=== PATIENT | female | born 1965 | race Caucasian/White ===

== ENCOUNTER 2024-04-29 01:05 | Day surgery (SDC) | payer OTHER, SELFPAY ==
[2024-04-17 15:33] VITALS: BMI 25.8
--- NOTE | 2024-04-17 15:53 | PC.NURSE ---
Report to hospital entrance [address], just right of the Outpatient Waiting Room entrance under the green pavilion located off [facility], at time _1000_ on date _[phone]_. Planned Procedure Time: _1200_.? Time changes happen often and if your time is changed the preop area will call you the afternoon before. - You and your visitor will be asked to self-screen and do not enter if you have any COVID symptoms. Please call surgeon if you need to reschedule. - A mask is optional within the hospital at this time. Patients may have clear liquids (water, carbonated beverages, clear teas, apple juice) until 3 hours prior to surgery with a maximum of 20 ounces. - No food from midnight until time of surgery and no smoking, or chewing tobacco (or any form of nicotine). No chewing gum, candy or mints. Take only the following medications with a SIP of water on the morning of surgery: __Duloxetine, Tiotropium inhaler and if needed may use albutrol inhaler. DO NOT STOP ANY OF YOUR OTHER PRESCRIPTION MEDICATIONS PRIOR TO SURGERY EXCEPT THE FOLLOWING Hold all vitamins and supplements for 3 days per anesthesiologist. Medications to discontinue per physician ___Aspirin OK to continue, Please inquire of Dr Ochoa if OK to continue Ibuprofen prior to surgery.____ Date to take last dose Please no make-up, nail scottish, hairspray, perfume, deodorant, or body powder the day of surgery.? No jewelry (including any body piercings) or valuables the day of surgery, leave them at home.? Please take a shower or bath the night before, or the morning of, surgery with an antibacterial soap.? Wear comfortable, loose fitting clothing.? - Jewelry must be removed prior to entering the operating room.? Rings and piercings that are not removed may be cut off. - The hospital will not accept responsibility for valuables.? - Please leave all valuables, including medications, at home the day of surgery. If you are going home after surgery, a licensed road driver must drive you home.? - NO public transportation without another adult if you receive anesthesia. - We recommend that an adult stay with you for 24 hours following discharge. - We also recommend that you do not drive, make important decision, drink alcoholic beverages, or take any drugs that were not prescribed by your health care provider for at least 24 hours after your discharge time. Follow any additional instructions given to you from your surgeon. Telephone instructions given to __Klaudia Brown.__and asked if any additional questions and then verbalized understanding. Patient advised to call surgeon office or pre surgery nurse liaison [phone] if any additional questions.
--- OUTSIDE RECORDS SUMMARY | 2024-04-29 01:18 | XMS_ITS | Clinical Summary ---
Author Organization [facility] Address [address] [place] [address] Care Team Providers Care Gunner'S Mate Name Role Phone Shay Oates MD, [facility] Primary Care Provider [phone] Benji Zhang MD Unavailable [phone] Allergies Active Allergy Reactions Criticality Noted Date Comments Sulfamethoxazole-Trimethoprim Rash Low 2017 Medications lisinopril 5 MG tablet Take 1 tablet (5 mg total) by mouth daily. 11/16/2017 Active duloxetine 60 MG capsule Take 1 capsule (60 mg total) by mouth daily. 11/16/2017 Active aspirin EC 81 MG EC tablet Take 1 tablet (81 mg total) by mouth daily. 11/16/2017 Active metFORMIN 1000 MG tablet Take 1 tablet (1,000 mg total) by mouth 2 (two) times daily with meals. 11/16/2017 Active glipiZIDE 10 MG tablet Take 2 tablets (20 mg total) by mouth every morning before breakfast. 04/12/2018 Active ibuprofen 600 MG tablet Take 1 tablet (600 mg total) by mouth every 8 (eight) hours as needed for Pain. 04/12/2018 Active atorvastatin 40 MG tablet Take 1 tablet (40 mg total) by mouth nightly at bedtime. 04/12/2018 Active nitroglycerin 0.[address] 1 tablet (0.4 mg total) under the tongue every 5 (five) minutes as needed for Chest Pain. If taking the 3rd dose call 911 04/12/2018 Active Active Problems Problem Noted Date Diagnosed Date Anemia 11/16/2022 Overview (11/16/2022): Added automatically from request for surgery [id number] Hemorrhoids 11/16/2022 Overview (11/16/2022): Added automatically from request for surgery [id number] BARONE (dyspnea on exertion) 12/04/2017 Abnormal EKG 12/04/2017 Hyperlipidemia Essential (primary) hypertension Family History Medical History Relation Comments Breast Cancer Neg Hx Relation Status Comments Brother Alive Mother Alive Social History Tobacco Use Types Packs/Day Years Used Date Smoking Tobacco: Former Cigarettes Q uit: 11/2015 Smokeless Tobacco: Never Alcohol Use Standard Drinks/Week Comments No 0 (1 standard drink = 0.6 oz pur e alcohol) AUDIT-C Answer Date Recorded Frequency of Alcohol Consumption Never 01/17/2018 Average Number of Drinks Not on file 018 Frequency of Binge Drinking Not on file 01/06 Comments No Sex and Gender Information Value Date Recorded Sex Assigned at Not on file Legal Sex Female 11:02 AM CDT Gender Identity Not on file Sexual Orientation Not on file 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 Not on file Not on file Last Filed Vital Signs Vital Sign Reading Time Taken Comments Blood Pressure 102/70 03/07/2023 10:48 AM HVAC RESIDENTIAL SERVICE TECHNICIAN Pulse 65 03/07/2023 10:48 AM HVAC RESIDENTIAL SERVICE TECHNICIAN Temperature 36.6 C (97.8 F) 03/07/2023 8:34 AM HVAC RESIDENTIAL SERVICE TECHNICIAN Respiratory Rate 18 03/07/2023 10:48 AM HVAC RESIDENTIAL SERVICE TECHNICIAN Oxygen Saturation 96% 03/07/2023 10:48 AM HVAC RESIDENTIAL SERVICE TECHNICIAN Inhaled Oxygen Concentration - - Weight 67.1 kg (148 lb) 03/07/2023 8:34 AM HVAC RESIDENTIAL SERVICE TECHNICIAN Height 152.4 cm (5') 03/07/2023 8:34 AM HVAC RESIDENTIAL SERVICE TECHNICIAN Body Mass Index 28.9 03/07/2023 8:34 AM HVAC RESIDENTIAL SERVICE TECHNICIAN Plan of Treatment Upcoming Encounters Date Type Department Care Team (Latest Contact Info) Description 10/25/2024 12:30 PM CDT Hospital Encounter [facility] Surgical Services [address] [place] [id number] Kj Swenson, DO [address] [place] [address] 10/25/2024 12:30 PM CDT - 10/25/2024 1:25 PM CDT Surgery [facility] Services [address] [place] [address] Kj Swenson, [address] [place] [address] Bilateral Carpal Tunnel Release with Procedure As Needed Scheduled Procedures Name Priority Associated Diagnoses Date/Ti me RELEASE CARPAL TUNNEL BILATERAL G56.01, G56.02 10/25/2024 12:30 PM CDT Health Maintenance Due Date Last Done Comments Cervical Cancer Screening Pa p Smear (Age 30 to 64) Every 3 Years 1965 Annual Physical 1968 Hepatitis C 11/27/1983 DTaP, Tdap and Td Vaccines ( 1 - Tdap) 1984 Hepatitis B Vaccines (1 of 3 - 19+ 3-dose series) 1984 Cervical Cancer Screening Pa p with HPV Testing (Age 30 to 64) Every 5 Years 11/27/1995 Cervical Cancer Screening with HPV 11/27/1995 Zoster Vaccines (1 of 2) 11/27/2015 COVID-19 Vaccine (2023-2 5 season) 2023 Influenza Adult (#1) 2023 PHQ-2 (Physician [place]) 02/07/2024 Mammogram Screening 12/28/2024 12/28/2022 Colorectal Cancer Screening Colonoscopy (10 Years) 03/07/2033 03/07/2023 Meningococcal B Vaccine Aged Out No l onger eligible based on patient's age to complete this topic Meningococcal Vaccine Aged Out No hattie dolores eligible based on patient's age to complete this topic Pneumococcal Vaccine: Pediat rics (0 to 5 Years) and At-Risk Patients (6 to 64 Years) Aged Out No longer eligi ble based on patient's age to complete this topic RSV Immunizations Under 20 Months Aged Out No longer eligible based on patient's age to complete this topic Procedures Procedure Name Priority Date/Time Associated Diagnosis Comments MG SCREENING W CALI NATHALIA DIGI Routine 12/28/2022 1:00 PM HVAC RESIDENTIAL SERVICE TECHNICIAN Encounter for screening mammogram for breast cancer from Last 3 Months or Most Recently Relevant to Health Maintenance Results * MG SCREENING W CALI NATHALIA DIGI (12/28/2022 1:00 PM HVAC RESIDENTIAL SERVICE TECHNICIAN) Anatomical Region Laterality Modality Breast Bilateral Computed Tomogra phy, Other 12/28/2022 4:02 PM HVAC RESIDENTIAL SERVICE TECHNICIAN Narrative 12/28/2022 4:03 PM HVAC RESIDENTIAL SERVICE TECHNICIAN EXAMINATION: Digital bilateral screening mammogram with 3-D tomosynthesis EXAM DATE/TIME: 12/28/2022 12:40 PM REASON FOR EXAM: Encounter for screening mammogram for breast cancer COMPARISON: Right including May 2018, November 2017, April 2017. TECHNIQUE: Digital screening mammography of both breasts was performed in addition to 3-D Tomosynthesis technique. This study was read with the assistance of a computer-aided detection system. TISSUE DENSITY: There are scattered areas of fibroglandular density. FINDINGS: On the right there is no suspicious masses, malignant appearing calcifications, skin thickening or other abnormalities are present. No significant change from the prior exam. Within the medial inferior left breast is a small asymmetry that is present. This could be due to overlapping tissue. Compression view and possible ultrasound. =====IMPRESSION:===== Asymmetry left breast. Compression view and possible ultrasound. ASSESSMENT: ACR BI-RADS 0 - INCOMPLETE: NEEDS ADDITIONAL IMAGING EVALUATION Recommendation: 1: Additional Imaging Left COMMENTS: Ordered By: EDWIN DAY V Interpreted By: Josiah Aguilar MD, 12/28/2022 4:02 PM Edwin Oates MD MAMMO Final Result from Last 3 Months or Most Recently Relevant to Health Maintenance Insurance [employer] Care Teams Gunner'S Mate Relationship Specialty Start Date End Date Edwin Day MD [facility] [address] [place] [address] PCP - General INTERNAL MEDICINE 10/03/17 Benji Zhang MD [facility] [address] [place] [address] Fredis Client Success Manager CARDIOVASCULAR DISEASE 11/07/17
--- OUTSIDE RECORDS SUMMARY | 2024-04-29 01:19 | XMS_ITS | Encounter Summary ---
Author Organization [facility] Address [address] [place] [address] Care Team Providers Care Job Placement Officer Name Role Phone Unavailable Primary Care Provider Unavailabl e Reason for Visit * Reason Onset Date Comments General 05/01/2019 Encounter Details Date Type Department Care Team (Late st Contact Info) Description 05/01/2019 Telephone [facility] - Orthopedics [address] [place] [id number] Deangelo Cervantes MD [facility] [address] [address] General Social History Tobacco Use Types Packs/Day Years Used Date Smoking Tobacco: Former Smokeless Tobacco: Former Alcohol Use Standard Drinks/Week Comments Never 0 (1 standard drink = 0.6 oz pur e alcohol) AUDIT-C Answer Date Recorded Frequency of Alcohol Consumption Never 04/10/2019 Average Number of Drinks Not on file 020 Frequency of Binge Drinking Not on file 05/2019 Sex and Gender Information Value Date Recorded Sex Assigned at Not on file Gender Identity Not on file Sexual Orientation Not on file documented as of this encounter Miscellaneous Notes * Telephone Encounter - Kaylee Estevez RN - 05/01/2019 11:33 AM CDT Called and left a message via [employer] @ [phone] Cervantes doesnot see inmates. Left call back number and extension. documented in this encounter Plan of Treatment Not on file documented as of this encounter Goals Goal Patient Goal Type Associated Problems Recent Progress Patient-Stated? Author Mobility General No Lis Francisco, RN Note: Expected end date: 06/07/2019 The goal is to maintain or improve your mobility at the optimum level for you. Interventions: documented as of this encounter Visit Diagnoses Not on filedocumented in this encounter
--- OUTSIDE RECORDS SUMMARY | 2024-04-29 01:19 | XMS_ITS | Clinical Summary ---
Author Organization [facility] Address [address] [place] [address] Care Team Providers Care Wire Repairer Name Role Phone Unavailable Primary Care Provider Unavailabl e Source Comments [facility],non-owned Affiliates and Associated Physician Practices is amultiple site organization consisting of ambulatory clinics and hospital sitesin [place], [place], [place] and [place]. This disclosure is being madepursuant to the Care Everywhere program and may not contain all information available regarding this patient. Last updated 17.[facility] [employer] Allergies Active Allergy Reactions Criticality Noted Date Comments Sulfamethoxazole W-Trimethoprim Rash Medium 09/06 Medications * Be aware that medications may not be up to date on this document. Alwaysverify current medications with the patient. Medication Sig Dispensed Refills Start Date End Date Status aspirin (ASPIRIN) 81 MG chew tablet Take 81 mg by mouth once daily Active atorvastatin (LIPITOR) 20 MG tablet Take 20 mg by mouth at bedtime Active lisinopril (PRINIVIL;ZESTRIL) 5 MG tablet Take 5 mg by mouth once daily Active metFORMIN (GLUCOPHAGE) 1000 MG tablet Take 1,000 mg by mouth 2 times daily with morning and evening meal Active naproxen (NAPROSYN) 250 MG tablet Take 250 mg by mouth 2 times daily Active IBUPROFEN PO Active Acetaminophen (TYLENOL PO) Active DULoxetine (CYMBALTA) 30 MG capsule Take 90 mg by mouth once daily Active glipiZIDE (GLUCOTROL) 10 MG tablet Take 10 mg by mouth 2 times daily,before breakfast and supper Active Tiotropium [place] Monohydrate (SPIRIVA HANDIHALER IN) Active Active Problems No known active problems Social History Tobacco Use Types Packs/Day Years [...] on file Sexual Orientation Not on file Last Filed Vital Signs Vital Sign Reading Time Taken Comments Blood Pressure 102/61 09/03/2019 8:08 AM CDT Pulse 70 09/03/2019 8:08 AM CDT Temperature 36.1 C (97 F) 09/03/2019 8:08 AM CDT Respiratory Rate 18 09/03/2019 8:08 AM CDT Oxygen Saturation 95% 09/03/2019 8:08 AM CDT Inhaled Oxygen Concentration - - Weight 68 kg (150 lb) 09/02/2019 6:39 PM CDT Height 152.4 cm (5') 09/02/2019 6:39 PM CDT Body Mass Index 29.29 09/02/2019 6:39 PM CDT Plan of Treatment Health Maintenance Due Date Last Done Comments COLOGUARD (AGES 45-75) - COL ON CA SCREENING 1965 COLON MONITORING 1965 COLONOSCOPY - COLON CA SCREENING 1965 CT COLONOGRAPHY - COLON CA SCREENING 1965 Colorectal Cancer Screening 1965 FIT - COLON CA SCREENING 1965 FLEX SIG - COLON CA SCREENING 1965 MAMMOGRAM 1965 PAP SMEAR 1965 HIV SCREENING 1980 HEPATITIS C SCREENING 11/22/1983 DTAP/TDAP/TD VACCINES (1 - Tdap) 1984 HEPATITIS B VACCINE (1 of 3 - 19+ 3-dose series) 1984 PNEUMOCOCCAL VACCINE 50+ (1 of 1 - PCV) 11/27/2015 ZOSTER VACCINE (1 of 2) 11/27/2015 SCREENING FOR DIABETES 09/01/2022 09/02/2019 COVID-19 VACCINE ( - 2023-2 5 season) 2023 INFLUENZA VACCINE (#1) 2023 DEPRESSION SCREENING 02/07/2024 HIB VACCINE Aged Out No longer eligi ble based on patient's age to complete this topic HPV VACCINE Aged Out No longer eligi ble based on patient's age to complete this topic MENINGOCOCCAL (Group B) VACC INE SHARED DECISION-MAKING Aged Out No longer eligibl e based on patient's age to complete this topic MENINGOCOCCAL GROUPS A/C/Y/W VACCINE Aged Out No longer eligible b ased on patient's age to complete this topic PNEUMOCOCCAL VACCINE Aged Out No long er eligible based on patient's age to complete this topic Goals Goal Patient Goal Type Associated Problems Recent Progress Patient-Stated? Author Mobility General No Lis Francisco RN Note: Expected end date: 06/07/2019 The goal is to maintain or improve your mobility at the optimum level for you. Interventions: Procedures Procedure Name Priority Date/Time Associated Diagnosis Comments COMPREHENSIVE METABOLIC PANEL STAT 09/02/2019 7:07 PM CDT from Last 3 Months or Most Recently Relevant to Health Maintenance Results * (ABNORMAL) COMPREHENSIVE METABOLIC PANEL (09/02/2019 7:07 PM CDT) BUN 15 7 - 26 mg/dL 09/02/2019 7:36 PM [facility] Creatinine 0.7 0.6 - 1.2 mg/dL 09/02/2019 7:36 PM [facility] Sodium 141 136 - 145 mmol/L 09/02/2019 7:36 PM [facility] Potassium 4.9(H) 3.5 - 4.5 mmol/L 09/02/2019 7:36 PM [facility] Chloride 105 98 - 107 mmol/L 09/02/2019 7:36 PM [facility] CO2 24 22 - 29 mmol/L 09/02/2019 7:36 PM [facility] Glucose 166(H) 70 - 115 mg/dL 09/02/2019 7:36 PM [facility] Calcium 9.7 8.4 - 10.2 mg/dL 09/02/2019 7:36 PM [facility] Protein Total 7.5 6.0 - 8.3 g/dL 09/02/2019 7:36 PM [facility] Albumin 3.8 3.4 - 5.0 g/dL 09/02/2019 7:36 PM [facility] Bilirubin Total 0.4 0.2 - 1.2 mg/dL 09/02/2019 7:36 PM [facility] Alkaline Phosphatase 108 40 - 150 Units/L 09/02/2019 7:36 PM [facility] ALT 85(H) 0 - 55 Units/L 09/02/2019 7:36 PM [facility] AST 60(H) 5 - 34 Units/L 09/02/2019 7:36 PM [facility] Anion Gap 17 8 - 18 09/02/2019 7:36 PM [facility] BUN/Creatinine Ratio 21 7 - 23 09/02/2019 7:36 PM [facility] Osmolality Calculated 297 270 - 300 mOsm/kg 09/02/2019 7:36 PM [facility] Albumin/Globulin Ratio 1.0(L) 1.1 - 2.3 09/02/2019 7:36 PM [facility] eGFR >60 >60 mL/min/1.7 3 m2 09/02/2019 7:36 PM [facility] Blood BLOOD SPECIMEN / Unknown Venipuncture / Unknown 09/02/2019 7:07 PM CDT 09/02/2019 7:14 PM T Joseph Mejía MD LAB - CHEMISTRY LYNDSEY EATON [facility] Organization Address City/State/ZIP Co de Phone Number [address] [address], [facility] [phone] from Last 3 Months or Most Recently Relevant to Health Maintenance
--- OUTSIDE RECORDS SUMMARY | 2024-04-29 01:19 | XMS_ITS | Encounter Summary ---
Author Organization [facility] Address [address] [place] [address] Care Team Providers Care Software Systems Architect Name Role Phone Shay Oates MD, Edwin Primary Care Provider [phone] Benji Zhang MD Unavailable [phone] Encounter Details Date Type Department Care Team (Late st Contact Info) Description 05/07/2018 Abstract [facility] at Psych[facility], [address] [address] Calixto Xiong MA Social History Tobacco Use Types Packs/Day Years Used Date Smoking Tobacco: Former Cigarettes Q uit: 11/2015 Smokeless Tobacco: Never Alcohol Use Standard Drinks/Week Comments No 0 (1 standard drink = 0.6 oz pur e alcohol) AUDIT-C Answer Date Recorded Frequency of Alcohol Consumption Never 01/17/2018 Average Number of Drinks Not on file Frequency of Binge Drinking Not on file 01/06 Comments Unknown Sex and Gender Information Value Date Recorded Sex Assigned at Not on file Legal Sex Female 11:02 AM CDT Gender Identity Not on file Sexual Orientation Not on file 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 Not on file Not on file documented as of this encounter Plan of Treatment Upcoming Encounters Date Type Department Care Team (Latest Contact Info) Description 10/25/2024 12:30 PM CDT Hospital Encounter [facility] Surgical Services [address] [place] [address] Kj Swenson, DO [address] [place] [address] 10/25/2024 12:30 PM CDT - 10/25/2024 1:25 PM CDT Surgery [facility] Surgical Services [address] [place] [address] Kj Swenson, DO [address] [facility] [place] [id number] Bilateral Carpal Tunnel Release with Procedure As Needed Scheduled Procedures Name Priority Associated Diagnoses Date/Ti me RELEASE CARPAL TUNNEL BILATERAL G56.01, G56.02 10/25/2024 12:30 PM CDT documented as of this encounter Procedures Procedure Name Priority Date/Time Associated Diagnosis Comments CBC (OUTSIDE LAB) Routine 01/15/2018 COMPREHENSIVE METABOLIC PANEL Routine 01/15/2018 LIPID PANEL Routine 01/15/2018 HEMOGLOBIN, GLYCOSYLATED Routine 01/15/2018 documented in this encounter Results * HEMOGLOBIN, GLYCOSYLATED (01/15/2018) HGB A1C 8.7 01/15/2018 us Doc [facility] Final Result * LIPID PANEL (01/15/2018) CHOLESTEROL 195 HDL 37 TRIGLYCERIDES 207 LDL (CALCULATED) 117 01/15/2018 us Doc [facility] Final Result * CBC (OUTSIDE LAB) (01/15/2018) WBC 6.5 HGB 14.0 HCT 40.8 PLT 202 01/15/2018 us Doc [facility]-OUTSIDE/ABSTRACTED Final Result * COMPREHENSIVE METABOLIC PANEL (01/15/2018) SODIUM S/P/B 139 POTASSIUM S/P/B 4.9 CO2 25 CHLORIDE S/P/B 99 GLUCOSE 198 mg/dL CALCIUM S/P/B 9.5 BUN 17 CREATININE S/P/B 0.55 0.5 - 1.0 EGFR NON-AFR. AMER. >60 <=90 ALKALINE PHOSPHATASE S/P/B 98 ALT 95 AST 58 BILIRUBIN TOTAL S/P/B 0.3 ALBUMIN S/P/B 4.3 3.5 - 5.0 TOTAL PROTEIN S/P/B 7.2 GLOBULIN 2.9 01/15/2018 us Doc [facility] Final Result documented in this encounter Visit Diagnoses Not on filedocumented in this encounter Care Teams Software Systems Architect Relationship Specialty Start Date End Date Edwin Day MD [facility] [address] [place] [address] PCP - General INTERNAL MEDICINE 10/03/17 Benji Zhang MD [facility]. [facility] [address] [place] [address] Kyles Ford Machine Spreader CARDIOVASCULAR DISEASE 11/07/17 documented as of this encounter
[2024-04-29 10:30] VITALS: BP 97/64; PULSE 85; RESP 14; TEMP 36.9; O2SAT 100
[2024-04-29 10:36] LABS: Glucose Point of Care 150 mg/dl (65-105)
--- NOTE | 2024-04-29 11:13 | WPDHPUPDATE1 ---
History and Physical Update Update Date/Time: 04/29/24 11:13 History and Physical has been reviewed, including an updated exam of the patient. There are NO changes in the patient's condition. Risks, benefits, and alternatives have been discussed and questions answered. Patient agrees to proceed with procedure.
--- NOTE | 2024-04-29 11:13 | PM.IMHP ---
H&P: HPI History of Present Illness Date/Time: 04/29/24 11:13 Chief Complaint: left flank mass Narrative: 58 yo woman presents for excision of left flank mass. she denies any changes since last seen in office. Review of Systems Review of Systems: All systems reviewed & are unremarkable except as noted in HPI and below Constitutional: Constitutional: Denies chills, Denies fever(s), Denies headache(s) and Denies weight loss Eyes: Eyes: Denies change in vision ENT: Denies dizziness, Denies headache(s), Denies neck mass and Denies throat swelling Cardiovascular: Cardiovascular: Denies chest pain, Denies lightheadedness and Denies dyspnea Respiratory: Respiratory: Denies cough, Denies dyspnea and Denies wheezing Gastrointestinal: Gastrointestinal: Denies abdominal pain, Denies change in bowel habits, Denies nausea and Denies vomiting Genitourinary: Genitourinary: Denies hematuria and Denies dysuria Musculoskeletal: Musculoskeletal: Reports as per HPI Integumentary/Breasts: Skin/Breast: Reports as per HPI Neurologic: Denies dizziness and Denies headache(s) Allergic/Immunologic: Allergic/Immunologic: Denies throat swelling and Denies wheezing [facility] Past Medical History Medical History Gastric ulcer Social History Social History (Updated 09/08/23 @ 08:33 by [employer]) Social History: Inmate at [facility] Smoking status: Never smoker Alcohol intake: never Do You Feel Safe in your Home?: Yes Lack of Transportation: No Lack of Food: Never True Current Housing: I Have Housing Concerned About Future Housing: No Difficulty Paying Gas/Electric Bills: No Difficulty Paying for Meds: No Currently Unemployed: Decline to Answer Education: High School Diploma/GED Difficulty w/ Childcare or Family Care: No Meds Home Medications and Allergies Home Medications ?Medication ?Instructions ?Recorded ?Confirmed ?Type albuterol sulfate 90 mcg/actuation 2 inh inhalation QID PRN shortness 08/02/23 04/17/24 History aerosol inhaler of breath or wheezing aspirin 81 mg tablet,delayed 81 mg PO DAILY 08/02/23 04/17/24 History release (Enteric Coated Aspirin) duloxetine 30 mg capsule,delayed 90 mg PO TID 08/02/23 04/17/24 History release ibuprofen 600 mg tablet 600 mg PO BID PRN pain 08/02/23 04/17/24 History lisinopril 20 mg tablet 20 mg PO DAILY 08/02/23 04/17/24 History metformin 1,000 mg tablet 1,000 mg PO BIDWMEAL 08/02/23 04/17/24 History omeprazole 20 mg capsule,delayed 20 mg PO DAILY 08/02/23 04/17/24 History release rosuvastatin 20 mg tablet 40 mg PO DAILY 08/02/23 04/17/24 History sennosides 8.6 mg capsule (senna) 8.6 mg PO BID PRN constipation 08/02/23 04/17/24 History tiotropium bromide 18 mcg capsule 1 cap inhalation DAILY 08/02/23 04/17/24 History with inhalation device vitamin A and D 1 applic topical QHS 08/02/23 04/17/24 History Allergies Allergy/AdvReac Type Severity Reaction Status Date / Time cephalexin Allergy Mild Rash Verified 04/17/24 15:29 sulfamethoxazole (From Allergy Mild Rash Verified 04/17/24 15:29 Bactrim) trimethoprim (From Bactrim) Allergy Mild Rash Verified 04/17/24 15:29 Vital Signs Vital Signs - 24 hr 04/29/24 10:30 Temperature 98.4 F Pulse Rate 85 Respiratory Rate 14 Blood Pressure 97/64 L Pulse Oximetry 100 Oxygen Delivery Room Air Exam Const: General: no acute distress and alert Orientation/consciousness: patient oriented x3 HENMT: Head: normocephalic and atraumatic Ears: hearing grossly normal bilaterally Face/Nose/Sinus: Normal nares present Mouth: Yes Normal oral and palatal mucosa present Eyes: Periorbital: periorbital findings normal Sclera: sclerae normal EOM: EOMs intact bilaterally Neck: Neck: normal visual inspection, no lymphadenopathy and trachea midline Chest: Chest palpation & inspection: normal inspection of the chest Resp: Effort & Inspection: normal respiratory effort Auscultation: clear to auscultation bilaterally Cardio: Jugular venous distension: no JVD Rate: regular rate Rhythm: regular rhythm Heart sounds: S1 normal heart sound present and S2 normal heart sound present Peripheral pulses: Peripheral pulses 2+ throughout GI: Inspection: normal to inspection GI Palp: Yes Soft to palpation, No Tenderness to palpation present (GI), No Guarding due to palpation present (GI) and No Rebound tenderness present Percussion: Yes normal to percussion Auscultation: normal bowel sounds : General: Yes no CVA tenderness Back/Spine/Pelvis: Back: no CVA tenderness Skin: Other: 6-8 cm left flank mass, likely a lipoma Neuro: General: patient oriented x3, no focal motor deficits and CN's II-XI intact bilaterally Cognition (Neuro): normal cognition Speech: normal speech Motor exam (neuro): 5/5 motor strength present throughout Extrem: General: capillary refill normal and no clubbing, cyanosis or edema Assessment and Plan Assessment and plan (1) Left flank mass: Code(s): R19.00 - Intra-abdominal and pelvic swelling, mass and lump, unspecified site Status: Acute Assessment and Plan: I have recommended excision of left flank mass. I have discussed the procedure, risks, benefits, and alternatives with the patient. All questions answered. No changes since last seen in office.
--- NOTE | 2024-04-29 11:14 | WPDANESEPPF ---
Anes - Initial Pre Proc Eval Procedure: Operation Date: 04/29/24 12:00 Proposed Procedures p Excision of Left Flank Mass - Bigg Ochoa DO Date/Time: 04/29/24 11:14 Surgeon: Bigg Ochoa DO Pre Op Diagnosis: Lt Flank Mass Patient Data Age: 58 Gender: F Height: 1.52 m Weight: 61 kg Last Vital Signs Temp 98.4 F 04/29/24 10:30 Pulse 85 04/29/24 10:30 Resp 14 04/29/24 10:30 BP 97/64 L 04/29/24 10:30 Pulse Ox 100 04/29/24 10:30 O2 Del Method Room Air 04/29/24 10:30 Allergies Allergy/AdvReac Type Severity Reaction Status Date / Time cephalexin Allergy Mild Rash Verified 04/17/24 15:29 sulfamethoxazole (From Allergy Mild Rash Verified 04/17/24 15:29 Bactrim) trimethoprim (From Bactrim) Allergy Mild Rash Verified 04/17/24 15:29 Home Medications ?Medication ?Instructions ?Recorded ?Confirmed ?Type albuterol sulfate 90 mcg/actuation 2 inh inhalation QID PRN shortness 08/02/23 04/17/24 History aerosol inhaler of breath or wheezing aspirin 81 mg tablet,delayed 81 mg PO DAILY 08/02/23 04/17/24 History release (Enteric Coated Aspirin) duloxetine 30 mg capsule,delayed 90 mg PO TID 08/02/23 04/17/24 History release ibuprofen 600 mg tablet 600 mg PO BID PRN pain 08/02/23 04/17/24 History lisinopril 20 mg tablet 20 mg PO DAILY 08/02/23 04/17/24 History metformin 1,000 mg tablet 1,000 mg PO BIDWMEAL 08/02/23 04/17/24 History omeprazole 20 mg capsule,delayed 20 mg PO DAILY 08/02/23 04/17/24 History release rosuvastatin 20 mg tablet 40 mg PO DAILY 08/02/23 04/17/24 History sennosides 8.6 mg capsule (senna) 8.6 mg PO BID PRN constipation 08/02/23 04/17/24 History tiotropium bromide 18 mcg capsule 1 cap inhalation DAILY 08/02/23 04/17/24 History with inhalation device vitamin A and D 1 applic topical QHS 08/02/23 04/17/24 History Laboratory Tests 04/29/24 10:34 POC Capillary Glucose 150 H mg/dl (65-105) Patient hx anesthesia problems: none Family hx anesthesia problems: none Results Review: All pre-operative results and documents have been reviewed as part of the pre-operative evaluation. [facility] Past Medical History Medical History Gastric ulcer Social History Social History Social History: Inmate at [facility] Smoking status: Never smoker Alcohol intake: never Do You Feel Safe in your Home?: Yes Lack of Transportation: No Lack of Food: Never True Current Housing: I Have Housing Concerned About Future Housing: No Difficulty Paying Gas/Electric Bills: No Difficulty Paying for Meds: No Currently Unemployed: Decline to Answer Education: High School Diploma/GED Difficulty w/ Childcare or Family Care: No Anes - Eval Final PreProcedure Day of Procedure 04/29/24 11:14 Patient weight: overweight Lungs: normal air movement Airway: Mallampati scale and special considerations (Upper and lower dentures. ) Neurological: alert and oriented Last oral intake: >/= 8 hours ASA classification: III Emergent: no Anesthetic plan: proceed Anesthesia type and monitoring: general GIVS and standard monitoring Results Review: All pre-operative results and documents have been reviewed as part of the pre-operative evaluation. HTN, hyperlipidemia, DM fsbs 150. Exsmoker quit 2015. Informed Consent: The patient's anesthetic plan and its attendant risks and benefits were discussed with the patient/family/POA. Questions were solicited and answers provided to the satisfaction of the patient/family/POA.
[2024-04-29] MEDS: LACTATED RINGERS 1,000 ML 30 ML IV CONT ×2 (11:30→12:55)
[2024-04-29] MEDS: CLINDAMYCIN 900 MG/D5W 50 ML 900 MG/50 ML PIGGYBACK 50 MG IVPB (11:57)
[2024-04-29] MEDS: LIDO 1%/EPINEPHRINE 1:100,000 50 ML VIAL INFILTRATE (12:18)
[2024-04-29] MEDS: BACITRACIN OINTMENT 15 GM TUBE 1 APPLIC TOPICAL (12:33)
[2024-04-29 12:49] VITALS: BP 101/66; PULSE 76; RESP 12; O2SAT 96
--- NOTE | 2024-04-29 12:55 | W.PM.PROC2 ---
Procedure Note - Detailed Date of Procedure 04/29/24 Pre-op Diagnosis Lt Flank Mass Post-op Diagnosis Same (6 cm left flank cyst) Procedure Performed Excision of 6 cm left flank epidermal cyst Surgeon Bigg Ochoa, DO Anesthesia MAC and Local (1% lidocaine with epinephrine) Indications This is a 58-year-old woman who presented with an enlarging mass on her left flank area. This had been present for several years but has gradually gotten larger. She had outpatient CT performed at an outside facility which showed evidence of a mass consistent with a lipoma. Discussions were made with the patient about treatment options and decision was made to proceed with excision of the left flank mass. Findings The mass appeared to be a cyst within the subcutaneous area. This was rather large measuring about 6 cm in diameter. This appeared to be consistent with an epidermal sebaceous cyst. The mass was completely excised and sent to the lab for pathology. Description of Procedure Procedure as well as risks, benefits, and alternatives were discussed with the patient. Written consent was obtained and placed in chart prior to procedure. Patient was brought back to surgical suite. She was placed in right lateral decubitus position on the operating table. Time-out was done to confirm patient and procedure. IV sedation was administered by the anesthesia department. Her left flank area was prepped and draped in sterile fashion using chlorhexidine prep. 1% lidocaine with epinephrine was infiltrated locally at the location of the mass. A 6 cm oblique incision was then made using a 10 blade scalpel. The mass was then carefully excised from the surrounding subcutaneous attachments using a 15 blade scalpel. Careful sharp dissection was used to completely excise the cyst intact. The cyst was completely excised and sent to the lab for pathology. Electrocautery was then used for hemostasis. The wound bed was then inspected and no other abnormalities were noted. The area was irrigated with sterile saline. The skin edges were then reapproximated using 3-0 nylon vertical mattress interrupted sutures. Bacitracin ointment was then applied followed by 4 x 4 gauze and tape. The patient was then awakened from anesthesia and transferred to recovery. Estimated Blood Loss 5 Pathology Yes Complications No immediate complications Condition Stable Disposition Same day [facility] Billing Surgery - Charge Forward: Surgery Billing
[2024-04-29 13:15] VITALS: BP 97/64; PULSE 73
[2024-04-29 13:32] LABS: Glucose Point of Care 106 mg/dl (65-105)
[2024-04-29 13:45] VITALS: BP 111/73; PULSE 71
== END 2024-04-29 14:00 | disposition home or self-care (01) ==
PROVIDERS: Visit Provider Surgery
PROC: (CPT 11406; principal; 2024-04-29 12:00)
DX: L72.0 Epidermal cyst (principal); Z79.84 Long term (current) use of oral hypoglycemic drugs
CPT/HCPCS: 11406; 82948; 88305; A9270; J0690; J1100; J2003; J2004; J2250; J2405; J2704; J3010; J7120